=== PATIENT | male | born 1970 | race African-American/Black ===

== ENCOUNTER 2018-06-14 05:40 | Emergency (ER) | payer OTHER ==
[~2018-06-14] VITALS: Ht 175.3 cm; Wt 93.4 kg
[~2018-06-14 05:40] MED LIST: ALBU2.5V8 INH; ESCITALOPRAM OX10 MG PO; FLUT1DIS3 IH; MIRT7.5T8 PO; PRAZ1CAP2 PO
[2018-06-14 05:45] VITALS: BP 134/87
--- NOTE | 2018-06-14 06:28 | PHYS DOC ---
Past Medical History Past Medical History: Asthma Past Surgical History: Other Additional Past Surgical Histo: rotator cuff Alcohol Use: Occasionally Drug Use: None Adult General Chief Complaint Chief Complaint: ANKLE PROBLEM HPI HPI Patient is a 47 year old male who presents with left ankle pain. This happened at approximately 2:00 this morning. Patient sustained an inversion mechanism injury while stepping down. Initially tried ibuprofen 800 mg to help with the pain but did not get any significant pain relief. He has been able to walk. Notes swelling to the lateral aspect of the ankle. Denies any numbness, tingling or paresthesias. Increased pain with movement and walking. Better with holding still. No previous ankle injury.[] Review of Systems Review of Systems Constitutional: Denies fever or chills [] Eyes: Denies change in visual acuity, redness, or eye pain [] HENT: Denies nasal congestion or sore throat [] Respiratory: Denies cough or shortness of breath [] Cardiovascular: No chest pain or palpitations[] GI: Denies abdominal pain, nausea, vomiting, bloody stools or diarrhea [] : Denies dysuria or hematuria [] Musculoskeletal: Denies back pain, see history of present illness[] Integument: Denies rash or skin lesions [] Neurologic: Denies headache, focal weakness or sensory changes [] Endocrine: Denies polyuria or polydipsia [] All other systems were reviewed and found to be within normal limits, except as documented in this note. Current Medications Current Medications Current Medications Medications (Trade) Dose Ordered Sig/[facility] Start Time Stop Time Status Last Admin Dose Admin Tramadol HCl (Ultram) 50 mg 1X ONCE 06/14/18 06:30 06/14/18 06:31 DC 06/14/18 06:28 50 MG Allergies Allergies Allergies Coded Allergies Type Severity Reaction Last Updated Verified cephalexin Adverse Reaction Intermediate Nausea and Vomiting 08/25/15 Yes Physical Exam Physical Exam Constitutional: Well developed, well nourished, no acute distress, non-toxic appearance. [] HENT: Normocephalic, atraumatic, bilateral external ears normal, oropharynx moist, no oral exudates, nose normal. [] Eyes: PERRLA, EOMI, conjunctiva normal, no discharge. [] Neck: Normal range of motion, no tenderness, supple, no stridor. [] Cardiovascular:Heart rate regular rhythm, no murmur [] Lungs & Thorax: Bilateral breath sounds clear to auscultation [] Abdomen: Not examined. [] Skin: Warm, dry, no erythema, no rash. [] Back: No tenderness, no CVA tenderness. [] Extremities: ,no cyanosis, no clubbing, ROM intact, tenderness to lateral aspect of left lateral ankle, over the anterior tolerate fibular ligament. No specific tenderness or swelling over the medial or lateral malleolus. No tenderness over the base of the fifth metatarsal. Patient is distal neurovascularly intact. Decreased range of motion secondary to pain. No laxity noted. Joint above and joined below were evaluated and were normal. [] Neurologic: Alert and oriented X 3, normal motor function, normal sensory function, no focal deficits noted. [] Psychologic: Affect normal, judgement normal, mood normal. [] Current Patient Data Vital Signs Vital Signs Date Time Temp Pulse Resp B/P (MAP) Pulse Ox O2 Delivery O2 Flow Rate FiO2 06/14/18 06:28 18 06/14/18 05:45 98.4 106 134/87 (103) 93 Room Air 98.4 EKG EKG [] Radiology/Procedures Radiology/Procedures X-ray of the left ankle shows no evidence of a fracture or dislocation.[] Course & Med Decision Making Course & Med Decision Making Pertinent Labs and Imaging studies reviewed. (See chart for details) ED course and medical decision making: Patient does not appear to have a fracture or dislocation. This appears to be more of an anterior tolerant fibular ligament sprain. Patient received pain medicine was transported to and from radiology with any complications. He was placed in an air splint and was distal neurovascularly intact after splint placement. Discussed findings and plan with the patient voiced understanding. All questions were answered. Patient was discharged in improved condition[] Dragon Disclaimer Dragon Disclaimer This electronic medical record was generated, in whole or in part, using a voice recognition dictation system. Departure Departure Impression: Primary Impression: Left ankle sprain Disposition: HOME, SELF-CARE Condition: IMPROVED Referrals: NO PCP (PCP) Patient Instructions: Ankle Sprain, Cast or Splint Care Additional Instructions: Follow-up with your regular doctor in 2 days. Wear the splint to support sure ankle when up and about and walking. Return to the ER if worsening pain or any other concerns Scripts Tramadol Hcl (TRAMADOL HCL) 50 Mg Tablet 50 MG PO Q6HRS PRN for PAIN, #20 TAB Prov: JERI WHITTINGTON DO 06/14/18 Meloxicam (MELOXICAM) 7.5 Mg Tablet 7.5 MG PO DAILY, #20 TAB Prov: JERI WHITTINGTON DO 06/14/18 Problem Qualifiers Primary Impression: Left ankle sprain Encounter type: initial encounter Involved ligament of ankle: anterior talofibular ligament Qualified Codes: S93.492A - Sprain of other ligament of left ankle, initial encounter JERI WHITTINGTON DO Jun 14, 2018 06:28
[2018-06-14] MEDS ORDERED: traMADol 50 MG TABLET PO ONE (06:30)
[2018-06-14] MEDS ORDERED: MELO7.5T29 PO (07:29)
[2018-06-14] MEDS ORDERED: TRAM50TA PO (07:29)
--- NOTE | 2018-06-14 07:54 | RAD ---
Left ankle 3 views. HISTORY: Inversion injury, lateral pain 3 views were taken of the left ankle. There is soft tissue swelling. There is not evidence of an acute fracture. There is no acute osseous abnormality. IMPRESSION: 1. No fracture noted in the left ankle. Electronically signed by: Rosendo Brasher MD (06/14/2018 7:51 AM) [facility]
== END 2018-06-14 08:09 | disposition home or self-care (01) ==
LOC: ER 05:40
DX: S93.492A Sprain of other ligament of left ankle, initial encounter (principal); J45.909 Unspecified asthma, uncomplicated; Z88.1 Allergy status to other antibiotic agents; X50.9XXA Other and unspecified overexertion or strenuous movements or postures, initial encounter; Y93.89 Activity, other specified; Y99.8 Other external cause status; Y92.89 Other specified places as the place of occurrence of the external cause
CPT/HCPCS: 73610; 99283